=== PATIENT | female | born 1990 | race Caucasian/White ===

== ENCOUNTER 2017-12-10 03:25 | Emergency (ER) | payer BC ==
[2017-12-10] MEDS ORDERED: Ibuprofen TAB* 800 MG PO ONE (05:17)
[2017-12-10] MEDS ORDERED: oxyCODONE/Acetamin 5/325 MG* TAB PO ONE (05:17)
--- NOTE | 2017-12-10 05:24 | ED ---
Upper Extremity Pain - HPI Summary HPI Summary: The pt is a 27 y.o female who is presenting to the [facility] with a chief complaint of right hand pain. The mechanism of injury was reportedly due to the pt punching a door at 0200 on 12/10/17. The pt denies other injury. EtOH was also reported to be used as per triage report. The patient rates the pain 5/10 in severity. Symptoms aggravated by nothing. Symptoms alleviated by nothing. - History of Current Complaint Chief Complaint: EDExtremityUpper Stated Complaint: RT HAND INJURY Time Seen by Provider: 12/10/17 05:11 Hx Obtained From: Patient Mechanism Of Injury: Blunt Trauma - Pt hit a door with her right hand Onset/Duration: Started Hours Ago - 0200 Timing: Constant, Lasting Hours - since 0200 Severity Initially: Moderate Severity Currently: Moderate Pain Location: Hand - Right Aggravating Factor(s): Nothing Alleviating Factor(s): Nothing Associated Signs & Symptoms: Positive: Swelling, Bruising - Allergies/Home Medications Allergies/Adverse Reactions: Allergies Allergy/AdvReac Type Severity Reaction Status Date / Time amoxicillin Allergy Hives Verified 10/09/17 09:51 PMH/Surg Hx/FS Hx/Imm Hx Endocrine/Hematology History: Denies: Hx Diabetes Cardiovascular History: Denies: Hx Hypertension, Hx Pacemaker/ICD History: Denies: Hx Renal Disease Sensory History: Denies: Hx Deafness, Hx Hearing Aid Opthamlomology History: Denies: Hx Legally Blind Psychiatric History: Denies: Hx Panic Disorder - Immunization History Date of Tetanus Vaccine: UP TO DATE Date of Influenza Vaccine: NONE Infectious Disease History: No Infectious Disease History: Denies: Hx Clostridium Difficile, Hx Hepatitis, Hx Human Immunodeficiency Virus (HIV), Hx of Known/Suspected MRSA, Hx Shingles, Hx Tuberculosis, Hx Known/ Suspected VRE, Hx Known/Suspected VRSA, History Other Infectious Disease, Traveled Outside the [place] in Last 30 Days - Family History Known Family History: Positive: None - unrelated to presenting problem - Social History Lives: With Family Alcohol Use: Weekly Substance Use Type: Reports: None Smoking Status (MU): Heavy Every Day Tobacco Smoker Review of Systems Constitutional: Negative Eyes: Negative ENT: Negative Cardiovascular: Negative Respiratory: Negative Gastrointestinal: Negative Genitourinary: Negative Musculoskeletal: Other - Right hand pain Positive: Other - Pt denies other injuries Skin: Negative Neurological: Other - EtOH use Psychological: Normal All Other Systems Reviewed And Are Negative: Yes Physical Exam - Summary Physical Exam Summary: VITAL SIGNS: Reviewed. GENERAL: Patient is a well-developed and nourished (FEMALE) who is lying comfortable in the stretcher. Patient is not in any acute respiratory distress. HEAD AND FACE: No signs of trauma. No ecchymosis, hematomas or skull depressions. No sinus tenderness. EYES: PERRLA, EOMI x 2, No injected conjunctiva, no nystagmus. EARS: Hearing grossly intact. Ear canals and tympanic membranes are within normal limits. MOUTH: Oropharynx within normal limits. NECK: Supple, trachea is midline, no adenopathy, no JVD, no carotid bruit, no c- spine tenderness, neck with full ROM. CHEST: Symmetric, no tenderness at palpation LUNGS: Clear to auscultation bilaterally. No wheezing or crackles. CVS: Regular rate and rhythm, S1 and S2 present, no murmurs or gallops appreciated. ABDOMEN: Soft, non-tender. No signs of distention. No rebound no guarding, and no masses palpated. Bowel sounds are normal. EXTREMITIES: Tenderness and swelling as well as Ecchymosis of the dorsal of the right hand on the side. NEURO: Alert and oriented x 3. No acute neurological deficits. Speech is normal and follows commands. SKIN: Dry and warm Triage Information Reviewed: Yes Vital Signs On Initial Exam: Initial Vitals Temp Pulse Resp BP Pulse Ox 97.9 F 100 16 117/83 98 12/10/17 03:30 12/10/17 03:30 12/10/17 03:30 12/10/17 03:30 12/10/17 03:30 Vital Signs Reviewed: Yes Diagnostics - Vital Signs Vital Signs Temp Pulse Resp BP Pulse Ox 12/10/17 03:30 97.9 F 100 16 117/83 98 - Laboratory Lab Statement: Any lab studies that have been ordered have been reviewed, and results considered in the medical decision making process. - Radiology Hand X-ray Radiology Interpretation Completed By: ED Physician - As per ED Physician, the hand X-ray reveals negative findings. The official report is pending. Course/Dx - Course Course Of Treatment: The pt is a 27 y.o female with a chief complaint of right hand pain onset upon punching a door at 0200. The pt was given a right hand X- ray in the [facility]. Upon evaluation of the right hand X-ray results, the pt will be discharged home with a dx of right hand contusion. The pt is recommended to follow up with orthopedic hand doctor within 1 to 2 days. - Diagnoses Provider Diagnoses: Contusion of right hand Discharge - Sign-Out/Discharge Documenting (check all that apply): Patient Departure - Discharge home, Post- Discharge Follow Up - Follow up with orthopedic hand doctor within 1 to 2 days. - Discharge Plan Condition: Stable Disposition: HOME Prescriptions: oxyCODONE/Acetamin 5/325 MG* [Percocet 5/325 TAB*] 1 tab PO Q6H PRN #14 tab MDD 4 PRN Reason: Pain Patient Education Materials: Hand Sprain (ED) Referrals: Reinaldo Hurt MD [Primary Care Provider] - Sigrid Joseph MD [Medical Doctor] - Additional Instructions: Follow up with Orthopedic hand MD within 1 to 2 days. RETURN TO THE EMERGENCY DEPARTMENT FOR CHANGING OR WORSENING SYMPTOMS. - Attestation Statements Document Initiated by Scribe: Yes Documenting Scribe: Deniz Flood Provider For Whom Scribe is Documenting (Include Credential): Dr. Andry Zuniga Scribe Attestation: Deniz Allen scribed for Dr. Andry Zuniga on 12/10/17 at 0602.
[2017-12-10] MEDS ORDERED: Al Hydrox/Mg Hydrox/Simet LIQ* 30 ML UDC PO ONE (06:19)
[2017-12-10 06:30] VITALS: BP 0/0
--- NOTE | 2017-12-10 07:58 | RAD ---
Indication: Right hand injury. 3 views of the right hand demonstrates no fracture or dislocation. No other bone or joint abnormality is identified. No fracture is noted. IMPRESSION: No fracture of the right hand is noted. R0
== END 2017-12-10 06:29 | disposition home or self-care (01) ==
LOC: ED 03:25
DX: S60.221A Contusion of right hand, initial encounter (principal); W22.8XXA Striking against or struck by other objects, initial encounter; Y92.9 Unspecified place or not applicable; Z72.0 Tobacco use
CPT/HCPCS: 99283; A9270-GY

== ENCOUNTER 2018-04-22 10:41 | Emergency (ER) | payer BC ==
[2018-04-22 11:55] VITALS: BP 136/85
[2018-04-22 12:45] LABS: Influenza A Molecular POSITIVE (Negative)
--- NOTE | 2018-04-22 12:49 | UC ---
FLU HPI - HPI Summary HPI Summary: Started 6 days ago w/ cough, fatigue, chills, aches, [place]. no sick contacts. did not get flu shot this year. - History of Current Complaint Chief Complaint: UCGeneralIllness Stated Complaint: FLU SYMPTOMS Time Seen by Provider: 04/22/18 11:31 Hx Obtained From: Patient Hx Last Menstrual Period: 05/04/2018 Pain Intensity: 6 Pain Scale Used: 0-10 Numeric Associated Signs & Symptoms: Positive: Fever, Myalgia, Cough - Allergy/Home Medications Allergies/Adverse Reactions: Allergies Allergy/AdvReac Type Severity Reaction Status Date / Time amoxicillin Allergy Hives Verified 04/22/18 11:45 Home Medications: Home Medications Naproxen Sodium [Aleve] 220 mg PO PRN 04/22/18 [History] PMH/Surg Hx/FS Hx/Imm Hx Previously Healthy: Yes - Surgical History Surgical History: None - Family History Known Family History: Positive: None - unrelated to presenting problem - Social History Alcohol Use: Weekly Substance Use Type: None Smoking Status (MU): Heavy Every Day Tobacco Smoker Household Exposure Type: Cigarettes Review of Systems All Other Systems Reviewed And Are Negative: Yes Constitutional: Positive: Fever, Chills, Fatigue Skin: Negative: Rash ENT: Positive: Ear Ache, Nasal Discharge, Sinus Congestion. Negative: Sore Throat Respiratory: Positive: Cough. Negative: Shortness Of Breath Cardiovascular: Positive: Negative Gastrointestinal: Negative: Vomiting, Diarrhea Genitourinary: Negative: Dysuria Musculoskeletal: Positive: Myalgia Neurological: Positive: Headache Physical Exam Triage Information Reviewed: Yes Appearance: Well-Appearing Vital Signs: Initial Vital Signs Temp 97.9 F 04/22/18 11:48 Pulse 85 04/22/18 11:48 Resp 18 04/22/18 11:48 BP 136/85 04/22/18 11:48 Pulse Ox 100 04/22/18 11:48 Vital Signs Reviewed: Yes Eyes: Positive: Conjunctiva Clear ENT: Positive: Pharynx normal, TMs normal, Uvula midline Neck: Positive: Supple, Nontender, No Lymphadenopathy Respiratory Exam: Normal Cardiovascular Exam: Normal Neurological: Positive: Alert Skin: Negative: Rashes Flu Course/Dx - Course Course Of Treatment: Flu like illness x 6 days in a pt. that did not get flu shot. + rapid flu today. exam essentially unremarkable today. hydration and tylenol advised for symptoms. - Differential Dx/Diagnosis Provider Diagnosis: Influenza A Discharge - Sign-Out/Discharge Documenting (check all that apply): Patient Departure All imaging exams completed and their final reports reviewed: No Studies - Discharge Plan Condition: Good Disposition: HOME Patient Education Materials: Influenza (DC) Forms: *Work Release Referrals: Reinaldo Hurt MD [Primary Care Provider] - Additional Instructions: If any symptoms worsen please follow up with your pcp - Billing Disposition and Condition Condition: GOOD Disposition: Home
== END 2018-04-22 13:01 | disposition home or self-care (01) ==
LOC: UCEAST 10:41
DX: J10.1 Influenza due to other identified influenza virus with other respiratory manifestations (principal); Z88.0 Allergy status to penicillin
CPT/HCPCS: 99211; G0463

== ENCOUNTER 2018-08-22 07:35 | Emergency (ER) | payer BC ==
[2018-08-22] MEDS ORDERED: Ondansetron TAB* 4 MG PO ONE (08:00)
[2018-08-22] MEDS ORDERED: Pantoprazole TAB * 40 MG TAB PO ONE (08:00)
--- NOTE | 2018-08-22 08:01 | ED ---
GI/ HPI - HPI Summary HPI Summary: Pt. is a 28 y.o female who presents to the ER for evaluation after "vomiting blood" just prior to arrival. Pt. states this morning she was in kitchen and started coughing and then suddenly vomited dark blood with clots. Pt. states she had similar sxs years ago. Pt. states she has a hx of acid reflux and use to take omeprazole but stopped bc she had side affects (pt. unable to recall.) Pt. states she was drinking ETOH last night and typically drinks on the weekends. Pt. denies NSAID use. No other past medical hx. Pt. states she experiences indigestion about 3 x a week and takes Tums. Sxs are moderate in severity. No current modifying factors. - History of Current Complaint Chief Complaint: EDNauseaVomitDiarrh Time Seen by Provider: 08/22/18 07:41 Stated Complaint: VOMITING BLOOD PER PT Hx Obtained From: Patient Hx Last Menstrual Period: 05/04/2018 Pain Intensity: 5 - Allergy/Home Medications Allergies/Adverse Reactions: Allergies Allergy/AdvReac Type Severity Reaction Status Date / Time amoxicillin Allergy Hives Verified 08/22/18 07:40 Home Medications: Home Medications Multivitamin [Multivitamins] 1 tab PO DAILY 08/22/18 [History Confirmed 08/22/18 ] PMH/Surg Hx/FS Hx/Imm Hx Previously Healthy: Yes Endocrine/Hematology History: Denies: Hx Diabetes, Hx Thyroid Disease Cardiovascular History: Denies: Hx Hypertension, Hx Pacemaker/ICD Respiratory History: Denies: Hx Asthma, Hx Chronic Obstructive Pulmonary Disease (COPD) GI History: Denies: Hx Ulcer History: Denies: Hx Renal Disease Sensory History: Denies: Hx Legally Blind, Hx Deafness, Hx Hearing Aid Opthamlomology History: Denies: Hx Legally Blind Psychiatric History: Denies: Hx Panic Disorder - Immunization History Date of Tetanus Vaccine: UP TO DATE Date of Influenza Vaccine: NONE Infectious Disease History: No Infectious Disease History: Denies: Hx Clostridium Difficile, Hx Hepatitis, Hx Human Immunodeficiency Virus (HIV), Hx of Known/Suspected MRSA, Hx Shingles, Hx Tuberculosis, Hx Known/ Suspected VRE, Hx Known/Suspected VRSA, History Other Infectious Disease, Traveled Outside the [place] in Last 30 Days - Family History Known Family History: Positive: None - unrelated to presenting problem, Non- Contributory - Social History Occupation: Employed Full-time Lives: With Family Alcohol Use: Occasionally Alcohol Amount: on weekends, 8-9 beers thursday Substance Use Type: Reports: None Smoking Status (MU): Heavy Every Day Tobacco Smoker Review of Systems Constitutional: Negative Negative: Fever, Chills Cardiovascular: Negative Negative: Palpitations, Chest Pain Respiratory: Negative Negative: Shortness Of Breath, Cough Positive: Abdominal Pain, Vomiting, Nausea. Negative: Diarrhea Genitourinary: Negative Negative: dysuria Neurological: Negative All Other Systems Reviewed And Are Negative: Yes Physical Exam Triage Information Reviewed: Yes Vital Signs On Initial Exam: Initial Vitals Temp Pulse Resp BP Pulse Ox 98.0 F 99 16 147/100 98 08/22/18 07:35 08/22/18 07:35 08/22/18 07:35 08/22/18 07:35 08/22/18 07:35 Vital Signs Reviewed: Yes Appearance: Positive: Well-Appearing - Pt. sitting up in bed in NAD. SO present. Skin: Positive: Warm, Dry Head/Face: Positive: Normal Head/Face Inspection Eyes: Positive: Normal, EOMI, [place] Neck: Positive: Supple Respiratory/Lung Sounds: Positive: Clear to Auscultation, Breath Sounds Present Cardiovascular: Positive: Normal, RRR Abdomen Description: Positive: Other: - Obese. [place] diffuse abd. discomfort with palpation. No rebound or guarding. Musculoskeletal: Positive: Normal, Strength/ROM Intact Neurological: Positive: Normal, CN Intact II-III Psychiatric: Positive: Affect/Mood Appropriate Diagnostics - Vital Signs Vital Signs Temp Pulse Resp BP Pulse Ox 08/22/18 07:35 98.0 F 99 16 147/100 98 - Laboratory Result Diagrams: 08/22/18 08:06 08/22/18 08:06 Lab Statement: Any lab studies that have been ordered have been reviewed, and results considered in the medical decision making process. GIGU Course/Dx - Course Course Of Treatment: Pt. presenting after an episode of dark red vomiting. She is afebrile with stable VS. Pt. notes hx of untreated acid reflux and she drank 8-9 beers last night. Pt. given a dose of zofran and omeprazole. CBC shows stable H and H, minimally elevated WBC. CMP unremarkable. Pt. observed in ED for 2.5 hours. She is tolerating water and crackers. She has had no vomiting in the ED. Pt. comfortable with DC. Pt. rx Protonix. Advised to call PCP tomorrow for close f.u apt. and referral to GI for scope. Advised pt. to avoid ETOH, smoking, acid/spice, NSAIDs. To return to ER for any further hematemesis or if concerned. Pt. understands and agrees with plan. - Diagnoses Differential Diagnoses - Female: Esophagitis/Gastritis, Esophageal Varices, Peptic Ulcer Disease Provider Diagnoses: Gastritis, Hematemesis Discharge - Sign-Out/Discharge Documenting (check all that apply): Patient Departure Patient Received Moderate/Deep Sedation with Procedure: No - Discharge Plan Condition: Improved Disposition: HOME Prescriptions: Pantoprazole TAB * [Protonix TAB*] 40 mg PO DAILY #30 tab Patient Education Materials: Gastroesophageal Reflux Disease (ED), Hematemesis (ED) Referrals: Jeff Ewing MD [Medical Doctor] - Reinaldo Hurt MD [Primary Care Provider] - Additional Instructions: Call PCP tomorrow for close follow up appointment for referral to GI for endoscopy Take Protonix as directed Avoid alcohol, anti-inflammatories (ibuprofen, motrin), spicy/acid foods, caffeine, smoking Return to ER if bleeding returns, chest pain, short of breath, dizzy, light headed, or if concerned - Billing Disposition and Condition Condition: IMPROVED Disposition: Home
[2018-08-22 08:12] LABS: ABS Basophils 0.1 10^3/ul (0-0.2); ABS Eosinophils 0.3 10^3/ul (0-0.6); ABS Lymphocytes 2.5 10^3/ul (1.0-4.8); ABS Monocytes 0.8 10^3/ul (0-0.8); Eosinophil % 2.8 %; Hematocrit 43 % (35-47); Hemoglobin 14.2 g/dL (12.0-16.0); Lymphocyte % 21.3 %; Mean Corpuscular HGB Conc 33 g/dL (31-36); Mean Corpuscular Hemoglobin 28 pg (27-31); Mean Corpuscular Volume 83 fL (80-97); Mean Platelet Volume 7.7 fL (7.4-10.4); Nucleated Red Blood Cells % 0.1; Platelet Count 355 10^3/uL (150-450); Red Blood Count 5.16 10^6 /uL (3.70-4.87); Red Cell Distribution Width 16 % (10-15); White Blood Count 11.7 10^3/uL (3.5-10.8)
[2018-08-22 08:22] LABS: Activated Partial Thrombo Time 32.7 seconds (26.0-38.0); INR 0.99 (0.82-1.09)
[2018-08-22 08:31] LABS: Albumin/Globulin Ratio 1.3 (1-3); BUN/Creatinine Ratio 11.8 (8-20); Calcium 9.5 mg/dL (8.6-10.3); EGFR African American 126.6 (>60); EGFR Non-African American 104.6 (>60); Potassium 3.8 mmol/L (3.5-5.0); Total Bilirubin 0.3 mg/dL (0.2-1.0)
[2018-08-22 08:35] LABS: HCG Pregnancy 5.38 mIU/mL
[2018-08-22 10:31] VITALS: BP 121/77
== END 2018-08-22 10:32 | disposition home or self-care (01) ==
LOC: ED 07:35
DX: K29.70 Gastritis, unspecified, without bleeding (principal); K92.0 Hematemesis; Z88.0 Allergy status to penicillin; F17.210 Nicotine dependence, cigarettes, uncomplicated; R11.2 Nausea with vomiting, unspecified; R10.9 Unspecified abdominal pain
CPT/HCPCS: 36415; 80053; 84702; 85025; 85610; 85730; 99283; A9270-GY